=== PATIENT | male | born 1960 | race Caucasian/White ===

== ENCOUNTER 2016-08-02 14:32 | Emergency (ER) | payer SELFPAY ==
[~2016-08-02] VITALS: Wt 76.0 kg
[~2016-08-02 14:32] MED LIST: CARB1TAB PO; LISI10TA2 PO; MAGN400T28 PO; OMEP40CA6 PO; RASA1TAB PO; ROPI2TAB3 PO
== END 2016-08-02 20:52 | disposition left against medical advice (07) ==
LOC: FTE 14:32 → E/R 20:52
DX: Z53.21 Procedure and treatment not carried out due to patient leaving prior to being seen by health care provider (principal)

== ENCOUNTER 2018-09-17 12:35 | Inpatient (IN) | payer OTHER ==
[~2018-09-17] VITALS: Ht 170.2 cm; Wt 87.0 kg
[2018-09-17] MEDS: SOD CHLORIDE 0.9% 1,000 ML IV SCH (14:54)
[2018-09-17] MEDS ORDERED: ONDANSETRON 4 MG INJ IV PRN (15:00)
[2018-09-17] MEDS ORDERED: HYDROmorphONE 0.5 MG/0.5 ML SYG IV PRN (15:00)
[2018-09-17] MEDS ORDERED: PIPER-TAZO 3.375 GM IV (PMX) 100 ML IVPB SCH (15:00)
[2018-09-17] MEDS ORDERED: HYDROCODONE/APAP (5/325) TAB PO PRN (15:00)
[2018-09-17] MEDS ORDERED: NACL 0.9% 3 ML SYG IV SCH (15:00)
[2018-09-17] MEDS ORDERED: ACETAMINOPHEN 325 MG TAB PO PRN (15:00)
--- NOTE | 2018-09-17 15:03 | HP ---
Date/Time of Note Date/Time of Note DATE: 09/17/18 TIME: 15:03 Assessment/Plan VTE Prophylaxis Pharmacological prophylaxis: other Assessment/Plan Hospital Course Patient is a male with a past medical history significant for Parkinson's with chronic tremors who presents to [facility] as a transfer from outside facility for cholecystitis. Patient states that for the past 2 days he has had right upper quadrant pain that has been getting progressively worse. Patient finally decided to go to the ED early last night due to pain that was not relieved by any positioning. CT and ultrasound was done at outside facility and is in the chart now that shows evidence of likely cholecystitis. Patient currently states that he is in fairly severe pain but otherwise other than his right upper quadrant pain has no acute issues. Patient states that he also had some decreased urine output but denies any urinary pain. Patient denies chest pain, shortness of breath, headache, dizziness, leg pain. Patient ambulates well normally and has no other issues. Objective Physical exam General: Patient is laying in bed and answers questions appropriately, bilateral upper extremity tremor Mentation: Patient is alert and oriented 4, Head: Normocephalic atraumatic Eyes: EOMI, pupils reactive to light Neck: Supple, nontender, midline Respiratory: Clear to auscultation bilaterally Cardiovascular: regular rate, no obvious murmurs Gastrointestinal: Right upper quadrant tender to palpation, bowel sounds heard. Neurological: Moves all extremities spontaneously Skin: No new skin lesions Assessment and plan Cholecystitis -CT and ultrasound at outside facility demonstrate evidence of cholecystitis -Liver labs at outside facility show negative lipase, normal AST and ALT and normal bilirubin however will repeat, -General surgery, Dr. Guerrier consulted -Per general surgery request, cardiology consulted, Dr. Hardin. Sepsis -IV fluid, IV antibiotic, blood cultures -Secondary to above -White count was 18 at the outside facility Abnormal gastric lining irregularity -Seen on CT at outside facility -Seen by Dr. Barnes approximately 2 years ago for colonoscopy, will reconsult Dr. Barnes for possible malignancy versus gastric ulcer work-up -Asymptomatic per patient, however will need work-up. -We will need to address cholecystitis first Parkinson's disease -We will hold off on Parkinson's medication for now as patient is n.p.o. -Patient has chronic bilateral upper extremity tremors due to Parkinson's Hypertension -Patient has hypertension due to his Parkinson's, hold off on p.o. medications due to n.p.o. status Questionable tachycardia -Initially nursing stated patient's heart rate was in the 200s, very unlikely, likely change due to patient's chronic tremors, physical exam showed a very steady and non-tachycardic rate -EKG pending -Cardiology consulted Disposition -Repeat stat labs, cardiology consultation pending for cardiac clearance, general surgeon and GI consultation also pending. HPI/ROS Admit Date/Time Admit Date/Time Sep 17, 2018 at 14:05 PMH/Family/Social Past Medical History Medications Current Medications Sodium Chloride 1,000 ml @ 100 mls/hr Q10H IV Last administered on 09/17/18at 14:54; Admin Dose 75 MLS/HR; Start 09/17/18 at 14:31 IV Flush (NS 3 ml) 3 ml PER PROTOCOL IV ; Start 09/17/18 at 15:00 Ondansetron HCl (Zofran Inj) 4 mg Q6H PRN IV NAUSEA/VOMITING; Start 09/17/18 at 15:00 Acetaminophen (Tylenol Tab) 650 mg Q6H PRN PO .PAIN 1-3 OR TEMP; Start 09/17/18 at 15:00 Acetaminophen/ Hydrocodone Bitart ([place] (5/325)) 1 tab Q6H PRN PO .PAIN 4-6; Start 09/17/18 at 15:00 Hydromorphone HCl (Dilaudid) 0.5 mg Q4H PRN IV .PAIN 7-10 Last administered on 09/17/18at 14:51; Admin Dose 0.5 MG; Start 09/17/18 at 15:00 Pantoprazole (Protonix Iv) 40 mg DAILY@06 IV ; Start 09/18/18 at 06:00 Piperacillin Sod/ Tazobactam Sod 100 ml @ 200 mls/hr Q6 IVPB ; Start 09/17/18 at 15:00 Coded Allergies: No Known Allergies (Verified Allergy, Mild, 04/17/10) ISIDRA SHARMA Sep 17, 2018 15:03
[2018-09-17 15:05] VITALS: Ht 170.2 cm; Wt 87.0 kg
[2018-09-17] MEDS ORDERED: hydrALAzine 20 MG INJ IV PRN (15:30)
[2018-09-17] MEDS: PIPER-TAZO 3.375 GM IV (PMX) 100 ML IVPB SCH ×3 (17:17→23:20)
--- NOTE | 2018-09-17 17:23 | CONS ---
Assessment/Plan Assessment/Plan Assessment/Plan (Daily) Cholecystitis -CT and ultrasound at outside facility showed evidence of cholecystitis -Liver labs at outside facility - negative lipase, normal AST and ALT and normal bilirubin however will repeat, -General surgery, Dr. Guerrier consulted -Per general surgery request, cardiology consulted, Dr. Hardin. Abnormal gastric lining irregularity - Plan for EGD -Abnormal gastric lining irregularity- Seen on CT at outside facility -Sp colonoscopy x 2 years ago -Asymptomatic per patient -Sepsis -IV fluid, IV antibiotic, blood cultures per ID -- Leukocytosis 2/2 to above -Parkinson's disease - management per PMD -Hypertension - management per PMD -Questionable tachycardia -EKG pending -Cardiology follows - Smoker - Provide smoking cessation Patient seen in collaboration with Dr Barnes. Consultation Date/Type/Reason Admit Date/Time Sep 17, 2018 at 14:05 Type of Consult GI Reason for Consultation CHOLECYSTITIS Date/Time of Note DATE: 09/17/18 TIME: 17:02 Hx of Present Illness Patient is a 58 years old male with a past medical history significant for Parkinson's with chronic tremors is admitted to [facility] for cholecystitis. He was transfer from a outside facility. Patient c/o right upper quadrant pain x 2 days and is progressively getting worse. CT and ultrasound was done at outside facility and is in the chart resulted in evidence of likely cholecystitis. Patient currently states that he is in fairly severe pain but otherwise other than his right upper quadrant pain has no acute issues. Patient states that he also had some decreased urine output but denies any urinary pain. Patient denies chest pain, shortness of breath, headache, dizziness,palpitations, bloody stool, bilious vomitting, right or left leg or calf pain. Patient was admitted under Dr Fernández at [facility]. GI is consulted for abdominal pain/cholecystitis and abnormal Gastric limning. ROS All systems reviewed and are negative except as per history of present illness. Constitutional: requiring IVF Eyes: no complaints ENT: no complaints Respiratory: no complaints Cardiovascular: no complaints Gastrointestinal: pain Genitourinary: no complaints Musculoskeletal: no complaints Skin: no complaints Neurologic: other (tremors) Endocrine: no complaints Lymphatic: no complaints Psychological: no complaints Past Medical History Medical History: hypertension Home Meds Reported Medications Carbidopa/Levodopa (Carbidopa-Levo 25-100 Tab) 1 Udtab.sa Tablet.sa, 1 TAB PO QID, #120 TAB 12/26/15 Rasagiline Mesylate* (Azilect*) 1 Mg Tablet, 1 MG PO DAILY, TAB 12/26/15 Lisinopril* (Lisinopril*) 10 Mg Tablet, 10 MG PO DAILY, #30 TAB 12/26/15 Ropinirole Hcl* (Ropinirole Hcl*) 2 Mg Tablet, 2 MG PO TID, TAB 12/26/15 Omeprazole* (Omeprazole*) 40 Mg Capsule.dr, 40 MG PO DAILY, #30 CAP 12/26/15 Magnesium Oxide* (Magnesium Oxide*) 400 Mg Tablet, 400 MG PO DAILY, TAB 12/26/15 Medications Current Medications Sodium Chloride 1,000 ml @ 100 mls/hr Q10H IV Last administered on 09/17/18at 14:54; Admin Dose 75 MLS/HR; Start 09/17/18 at 14:31 IV Flush (NS 3 ml) 3 ml PER PROTOCOL IV ; Start 09/17/18 at 15:00 Ondansetron HCl (Zofran Inj) 4 mg Q6H PRN IV NAUSEA/VOMITING; Start 09/17/18 at 15:00 Acetaminophen (Tylenol Tab) 650 mg Q6H PRN PO .PAIN 1-3 OR TEMP; Start 09/17/18 at 15:00 Acetaminophen/ Hydrocodone Bitart ([place] (5/325)) 1 tab Q6H PRN PO .PAIN 4-6; Start 09/17/18 at 15:00 Hydromorphone HCl (Dilaudid) 0.5 mg Q4H PRN IV .PAIN 7-10 Last administered on 09/17/18at 14:51; Admin Dose 0.5 MG; Start 09/17/18 at 15:00 Pantoprazole (Protonix Iv) 40 mg DAILY@06 IV ; Start 09/18/18 at 06:00 Piperacillin Sod/ Tazobactam Sod 100 ml @ 200 mls/hr Q6 IVPB ; Start 09/17/18 at 15:00 Hydralazine HCl (Apresoline) 10 mg Q4H PRN IV sbp >160; Start 09/17/18 at 15:30 Allergies: Coded Allergies: No Known Allergies (Verified Allergy, Mild, 04/17/10) Past Surgical History Past Surgical Hx: noncontributory Family History Significant Family History: no pertinent family hx Social History Alcohol Use: occasionally Smoking Status: Light tobacco smoker Drug Use: none Exam/Review of Systems Exam Constitutional: alert, well developed Psych: no complaints Eyes: nl lids, nl sclera ENMT: nl external ears & nose Neck: non-tender Respiratory: clear to auscultation, other (bilaterally) Cardiovascular: nl pulses, other (s1s2) Gastrointestinal: soft, tender (diffuse tenderness noted) Musculoskeletal: nl extremities to inspection Extremities: normal pulses Neurological: nl speech, other (Parkinsons tremors) Skin: nl turgor Lymph: nontender Results Result Diagram: 09/17/18 1526 09/17/18 1526 Results 24hrs Laboratory Tests Test 09/17/18 15:26 White Blood Count 17.0 H Red Blood Count 4.73 Hemoglobin 14.7 Hematocrit 43.0 Mean Corpuscular Volume 90.9 Mean Corpuscular Hemoglobin 31.1 Mean Corpuscular Hemoglobin Concent 34.2 Red Cell Distribution Width 12.8 Platelet Count 297 Mean Platelet Volume 10.8 H Immature Granulocytes % 0.400 Neutrophils % 83.8 H Lymphocytes % 6.9 L Monocytes % 8.4 Eosinophils % 0.2 Basophils % 0.3 Nucleated Red Blood Cells % 0.0 Immature Granulocytes # 0.060 H Neutrophils # 14.2 H Lymphocytes # 1.2 Monocytes # 1.4 H Eosinophils # 0.0 Basophils # 0.1 Nucleated Red Blood Cells # 0.0 Prothrombin Time 14.4 Prothrombin Time Ratio 1.1 INR International Normalized Ratio 1.11 Activated Partial Thromboplast Time 29.2 Sodium Level 138 Potassium Level 3.9 Chloride Level 104 Carbon Dioxide Level 25 Anion Gap 9 Blood Urea Nitrogen 12 Creatinine 0.66 Est Glomerular Filtrat Rate mL/min > 60 Glucose Level 104 Lactic Acid Level 0.9 Calcium Level 9.0 Magnesium Level 1.7 Total Bilirubin 1.4 H Direct Bilirubin 0.00 Indirect Bilirubin 1.4 H Aspartate Amino Transf (AST/SGOT) 35 Alanine Aminotransferase (ALT/SGPT) 27 Alkaline Phosphatase 61 Troponin I < 0.012 Total Protein 7.1 Albumin 4.0 Globulin 3.10 Albumin/Globulin Ratio 1.29 Medications Medication Current Medications Sodium Chloride 1,000 ml @ 100 mls/hr Q10H IV Last administered on 09/17/18at 14:54; Admin Dose 75 MLS/HR; Start 09/17/18 at 14:31 IV Flush (NS 3 ml) 3 ml PER PROTOCOL IV ; Start 09/17/18 at 15:00 Ondansetron HCl (Zofran Inj) 4 mg Q6H PRN IV NAUSEA/VOMITING; Start 09/17/18 at 15:00 Acetaminophen (Tylenol Tab) 650 mg Q6H PRN PO .PAIN 1-3 OR TEMP; Start 09/17/18 at 15:00 Acetaminophen/ Hydrocodone Bitart ([place] (5/325)) 1 tab Q6H PRN PO .PAIN 4-6; Start 09/17/18 at 15:00 Hydromorphone HCl (Dilaudid) 0.5 mg Q4H PRN IV .PAIN 7-10 Last administered on 09/17/18at 14:51; Admin Dose 0.5 MG; Start 09/17/18 at 15:00 Pantoprazole (Protonix Iv) 40 mg DAILY@06 IV ; Start 09/18/18 at 06:00 Piperacillin Sod/ Tazobactam Sod 100 ml @ 200 mls/hr Q6 IVPB ; Start 09/17/18 at 15:00 Hydralazine HCl (Apresoline) 10 mg Q4H PRN IV sbp >160; Start 09/17/18 at 15:30 MOUSTAPHA HULL Sep 17, 2018 17:13
--- NOTE | 2018-09-17 17:24 | CONS ---
Assessment/Plan Assessment/Plan Assessment/Plan (Daily) Acute cholecystitis Patient has been started on IV antibiotics. GI consultation and cardiology cons ultation for this patient have been sought. Laparoscopic cholecystectomy is recommended for this patient when medically cleared. Consultation Date/Type/Reason Admit Date/Time Sep 17, 2018 at 14:05 Date of Consultation: Sep 17, 2018 Type of Consult General surgery Reason for Consultation Acute cholecystitis Date/Time of Note DATE: 09/17/18 TIME: 17:19 Hx of Present Illness The patient is a 58-year-old male with Parkinson's disease who presented to [facility] with severe midepigastric and right upper quadrant abdominal pain. He was found on abdominal ultrasound and CT to have a thickened gallbladder with gallstones and findings compatible with acute cholecystitis. He was also noted to have an elevated white blood cell count although his LFTs w ere normal he was transferred here for continuance of care. Review of systems: Head ears eyes nose and throat: Unremarkable Pulmonary: no history of asthma, pneumonia or shortness of breath Cardiac: Unknown Abdomen: As in the HPI Extremities: Intention tremor from Parkinson's disease Past Medical History Medical History: other (Perkinson's disease) Home Meds Reported Medications Carbidopa/Levodopa (Carbidopa-Levo 25-100 Tab) 1 Udtab.sa Tablet.sa, 1 TAB PO QID, #120 TAB 12/26/15 Rasagiline Mesylate* (Azilect*) 1 Mg Tablet, 1 MG PO DAILY, TAB 12/26/15 Lisinopril* (Lisinopril*) 10 Mg Tablet, 10 MG PO DAILY, #30 TAB 12/26/15 Ropinirole Hcl* (Ropinirole Hcl*) 2 Mg Tablet, 2 MG PO TID, TAB 12/26/15 Omeprazole* (Omeprazole*) 40 Mg Capsule.dr, 40 MG PO DAILY, #30 CAP 12/26/15 Magnesium Oxide* (Magnesium Oxide*) 400 Mg Tablet, 400 MG PO DAILY, TAB 12/26/15 Medications Current Medications Sodium Chloride 1,000 ml @ 100 mls/hr Q10H IV Last administered on 09/17/18at 14:54; Admin Dose 75 MLS/HR; Start 09/17/18 at 14:31 IV Flush (NS 3 ml) 3 ml PER PROTOCOL IV ; Start 09/17/18 at 15:00 Ondansetron HCl (Zofran Inj) 4 mg Q6H PRN IV NAUSEA/VOMITING; Start 09/17/18 at 15:00 Acetaminophen (Tylenol Tab) 650 mg Q6H PRN PO .PAIN 1-3 OR TEMP; Start 09/17/18 at 15:00 Acetaminophen/ Hydrocodone Bitart ([place] (5/325)) 1 tab Q6H PRN PO .PAIN 4-6; Start 09/17/18 at 15:00 Hydromorphone HCl (Dilaudid) 0.5 mg Q4H PRN IV .PAIN 7-10 Last administered on 09/17/18at 14:51; Admin Dose 0.5 MG; Start 09/17/18 at 15:00 Pantoprazole (Protonix Iv) 40 mg DAILY@06 IV ; Start 09/18/18 at 06:00 Piperacillin Sod/ Tazobactam Sod 100 ml @ 200 mls/hr Q6 IVPB Last administered on 09/17/18at 17:17; Admin Dose 200 MLS/HR; Start 09/17/18 at 15:00 Hydralazine HCl (Apresoline) 10 mg Q4H PRN IV sbp >160; Start 09/17/18 at 15:30 Allergies: Coded Allergies: No Known Allergies (Verified Allergy, Mild, 04/17/10) Past Surgical History Past Surgical Hx: no surgical history Family History Significant Family History: no pertinent family hx Social History Alcohol Use: none Smoking Status: Light tobacco smoker Exam/Review of Systems Exam Constitutional: alert, oriented Psych: no complaints Head: normocephalic Respiratory: clear to auscultation, crackles/rales Gastrointestinal: tender (Tender right upper quadrant, slight Robles sign) Musculoskeletal: nl extremities to inspection, other (Tension tremor both upper and lower extremities) Extremities: normal pulses Results Result Diagram: 09/17/18 1526 09/17/18 1526 Results 24hrs Laboratory Tests Test 09/17/18 15:26 White Blood Count 17.0 H Red Blood Count 4.73 Hemoglobin 14.7 Hematocrit 43.0 Mean Corpuscular Volume 90.9 Mean Corpuscular Hemoglobin 31.1 Mean Corpuscular Hemoglobin Concent 34.2 Red Cell Distribution Width 12.8 Platelet Count 297 Mean Platelet Volume 10.8 H Immature Granulocytes % 0.400 Neutrophils % 83.8 H Lymphocytes % 6.9 L Monocytes % 8.4 Eosinophils % 0.2 Basophils % 0.3 Nucleated Red Blood Cells % 0.0 Immature Granulocytes # 0.060 H Neutrophils # 14.2 H Lymphocytes # 1.2 Monocytes # 1.4 H Eosinophils # 0.0 Basophils # 0.1 Nucleated Red Blood Cells # 0.0 Prothrombin Time 14.4 Prothrombin Time Ratio 1.1 INR International Normalized Ratio 1.11 Activated Partial Thromboplast Time 29.2 Sodium Level 138 Potassium Level 3.9 Chloride Level 104 Carbon Dioxide Level 25 Anion Gap 9 Blood Urea Nitrogen 12 Creatinine 0.66 Est Glomerular Filtrat Rate mL/min > 60 Glucose Level 104 Lactic Acid Level 0.9 Calcium Level 9.0 Magnesium Level 1.7 Total Bilirubin 1.4 H Direct Bilirubin 0.00 Indirect Bilirubin 1.4 H Aspartate Amino Transf (AST/SGOT) 35 Alanine Aminotransferase (ALT/SGPT) 27 Alkaline Phosphatase 61 Troponin I < 0.012 Total Protein 7.1 Albumin 4.0 Globulin 3.10 Albumin/Globulin Ratio 1.29 Medications Medication Current Medications Sodium Chloride 1,000 ml @ 100 mls/hr Q10H IV Last administered on 09/17/18at 14:54; Admin Dose 75 MLS/HR; Start 09/17/18 at 14:31 IV Flush (NS 3 ml) 3 ml PER PROTOCOL IV ; Start 09/17/18 at 15:00 Ondansetron HCl (Zofran Inj) 4 mg Q6H PRN IV NAUSEA/VOMITING; Start 09/17/18 at 15:00 Acetaminophen (Tylenol Tab) 650 mg Q6H PRN PO .PAIN 1-3 OR TEMP; Start 09/17/18 at 15:00 Acetaminophen/ Hydrocodone Bitart ([place] (5/325)) 1 tab Q6H PRN PO .PAIN 4-6; Start 09/17/18 at 15:00 Hydromorphone HCl (Dilaudid) 0.5 mg Q4H PRN IV .PAIN 7-10 Last administered on 09/17/18at 14:51; Admin Dose 0.5 MG; Start 09/17/18 at 15:00 Pantoprazole (Protonix Iv) 40 mg DAILY@06 IV ; Start 09/18/18 at 06:00 Piperacillin Sod/ Tazobactam Sod 100 ml @ 200 mls/hr Q6 IVPB Last administered on 09/17/18at 17:17; Admin Dose 200 MLS/HR; Start 09/17/18 at 15:00 Hydralazine HCl (Apresoline) 10 mg Q4H PRN IV sbp >160; Start 09/17/18 at 15:30 AMAN DAWN MD Sep 17, 2018 17:24
[2018-09-17 19:39] VITALS: BP 128/47; PULSE 91; RESP 16
[2018-09-17] MEDS: HYDROmorphONE 0.5 MG/0.5 ML SYG IV PRN (19:41)
[2018-09-18] VITALS (13 sets, daily range): BP systolic 113–140; BP diastolic 61–83; PULSE 82–97; RESP 16–23
[2018-09-18] MEDS: HYDROmorphONE 0.5 MG/0.5 ML SYG IV PRN ×2 (00:08→18:55)
[2018-09-18] MEDS: SOD CHLORIDE 0.9% 1,000 ML IV SCH ×3 (00:38→23:30)
--- NOTE | 2018-09-18 01:05 | RADRPT ---
Vent Rate: 91 bpm RR Interval: 660 msec IN Interval: 164 msec QRS Duration: 98 msec QT Interval: 348 msec QTC Interval: 428 msec P-R-T Raymond: 22 - -26 - 35 degrees Sinus rhythm...normal P axis, V-rate 50- 99 Probable left atrial enlargement...P >50mS, <-0.10mV V1 Borderline ST elevation, anterior leads...ST >0.15mV in V1-V4 Electronically Signed By: Tim Moore
[2018-09-18] MEDS: PANTOPRAZOLE 40 MG INJ IV SCH (05:14)
[2018-09-18] MEDS: PIPER-TAZO 3.375 GM IV (PMX) 100 ML IVPB SCH ×4 (05:14→23:31)
--- NOTE | 2018-09-18 09:53 | CONS ---
DATE OF ADMISSION: 09/17/2018 DATE OF CONSULTATION: 09/18/2018 HISTORY OF PRESENT ILLNESS: The patient is admitted to the hospital because of abdominal pain and vo miting. He was seen in the [facility] where CAT scan of the abdomen shows irregulari ty of the stomach with thickening and asymmetry, infection in the antrum. Also showed evidence of po ssible cholecystitis. REVIEW OF SYSTEM: Positive for Parkinsonism. PAST MEDICAL HISTORY: Essentially as mentioned above, the patient had a previous colonoscopy done, w hich showed findings were unremarkable. Please refer to the past medical history and physical. MEDICATIONS: Include: 1. Pantoprazole 2. Hydralazine. 3. Zofran. 4. [place]. 5. Dilaudid. 6. Antibiotics Piperacillin. 7. Tazobactam. PHYSICAL EXAMINATION: GENERAL: The patient is a 58-year-old gentleman at the time is alert, well built, is afebri le, has Parkinsonism. VITAL SIGNS: Temperature 98.7, pulse is 92, blood pressure is 140/78. CARDIOVASCULAR: Normal heart sounds. RESPIRATORY: Normal breath sounds. ABDOMEN: Unremarkable. LABORATORY WORKUP: Potassium 3.9, bilirubin is 1.6, AST 29, ALT 27, alkaline phosphatase 59, hemoglo bin 13.8, WBC count 17,400. CLINICAL IMPRESSION: 1. Possible acute cholecystitis. 2. He has evidence of abnormal stomach which is asymmetrical thickening of the antrum. Rule out pep tic ulcer disease, rule out malignancy. 3. Parkinsonism. PLAN: At this time, recommend upper endoscopy, discussed with the patient. Patient agreed. Dictated By: ELENA CALHOUN MD NC/NTS Conf#: [id number] DID#: [id number] CC: ISIDRA SHARMA MD;*EndCC*
--- NOTE | 2018-09-18 11:42 | RADRPT ---
Echocardiogram Report Patient Name: Jazmine AGUILAR ID: [id number] : 1960 (58y 3m)Study Date: 09/18/2018 8:07:54 AM Gender: MAccession #: [id number] Tech: Hayde Lewis [facility] Location: [id number] Ref.Physician: ISIDRA SHARMA Height(Cm): BSA: Weight(Kg): Quality: AdequateAccount #: Procedures: Echocardiographic Report: Transthoracic echocardiogram with complete 2D, M-Mode, and doppler examination. Indications: Pre-op. Measurements: 2D/M Mode Doppler Measurement Value Normal Range Measurement Value Normal Range LVIDd 2D 3.5 [ 4.2 - 5.8 ] cm AV Peak Rodriguez 1.9 [ 100.0 - 170.0 ] cm/sec LVIDs 2D 1.9 [ 2.5 - 4.0 ] cm AV Peak PG 14.0 [ 2.0 - 9.0 ] mmHg LVPWd 2D 0.9 [ 0.6 - 1.0 ] cm LVOT Peak Rodriguez 1.3 [ 70.0 - 110.0 ] cm/sec IVSd 2D 0.9 [ 0.6 - 1.0 ] cm LVOT Peak PG 7.0 [ 2.0 - 6.0 ] mmHg AoR Diam 2D 2.9 [ 2.6 - 3.4 ] cm MV E Peak Rodriguez 0.7 [ 60.0 - 130.0 ] cm/sec EDV 2D 50.2 [ 62.0 - 150.0 ] ml MV A Peak Rodriguez 0.9 [ 100.0 - 120.0 ] cm/sec ESV 2D 10.4 [ 21.0 - 61.0 ] ml MV E/A 0.8 [ 0.8 - 1.5 ] ratio EF 2D 79.3 [ 52.0 - 72.0 ] percent MV Decel Time 151 [ 104 - 258 ] msec LA Dimen 2D 3.0 [ 3.0 - 4.0 ] cm Lat E` Rodriguez 0.1 [ 10.0 - 15.0 ] cm/sec Lateral E/E` 6.7 [ 1.0 - 2.0 ] ratio MV E/A 0.8 [ 0.8 - 1.5 ] ratio Findings: Left Ventricle: Normal left ventricular systolic function. Normal left ventricular cavity size. Normal left ventricular wall thickness. Ejection fraction is visually estimated at 65 %. Tissue Doppler/Mitral Doppler indices are consistent with impaired relaxation (Stage I diastolic dysfunction). Right Ventricle: Normal right ventricular size. Normal right ventricular systolic function. Left Atrium: There is mild enlargement of left atrium. Right Atrium: The right atrium is normal in size. Mitral Valve: Normal appearance and function of the mitral valve with trace physiologic regurgitation. Aortic Valve: Normal appearance of the aortic valve. No significant aortic stenosis or insufficiency. Tricuspid Valve: Normal appearance of the tricuspid valve. Unable to obtain RVSP due to minimal presence of tricuspid regurgitation. Pulmonic Valve: Normal pulmonic valve appearance. Pericardium: Normal pericardium with no significant pericardial effusion. Aorta: Normal aortic root. IVC: Normal size and normal respiratory collapse consistent with normal right atrial pressure. Conclusions: Normal left ventricular systolic function. Normal left ventricular cavity size. Normal left ventricular wall thickness. Ejection fraction is visually estimated at 65 %. Tissue Doppler/Mitral Doppler indices are consistent with impaired relaxation (Stage I diastolic dysfunction). No significant valvular stenosis or regurgitation seen. Unable to obtain RVSP due to minimal presence of tricuspid regurgitation. Normal size and normal respiratory collapse consistent with normal right atrial pressure. Electronically Signed By: Marciano Hardin 2018-09-18 11:41:22 PDT
--- NOTE | 2018-09-18 11:54 | PN ---
Date/Time of Note Date/Time of Note DATE: 09/18/18 TIME: 11:54 Assessment/Plan VTE Prophylaxis Risk score (from Ns)>0 risk: 2 SCD applied (from Ns): Yes Pharmacological prophylaxis: NA/contraindicated Pharm contraindication: low risk/ambulating Lines/Catheters IV C[facility]ter Type (from [facility] Peripheral IV Urinary Cath still in place: No Assessment/Plan Hospital Course SUBJECTIVE: Sitting up in bed, having pain on right upper abdominal area. No chest pain, shortness of breath, palpitation, diaphoresis or other discomfort. OBJECTIVE: Vital signs-see below PHYSICAL EXAM: Constitutional: Adequately built,not in acute distress. HEENT: Head atraumatic and normocephalic. Eyes: Extraocular muscles intact. Anicteric sclerae. Pupils equal bilaterally, reactive to light. NECK: Supple without lymph node. CHEST: Clear and good breath sounds equally. No wheezing. No rhonchi. HEART: S1, S2. Regular rate and rhythm. ABDOMEN: +Tenderness RUQ, no rebound tenderness Bowel sounds were present. EXTREMITIES: No cyanosis, clubbing or edema. NEUROLOGIC: Alert and oriented x3. No focal deficit. No sensory deficit. PSYCHOSOCIAL: No signs of depression. INTEGUMENTARY: No open wounds. ASSESSMENT AND PLAN: 58-year-old male with a history of parkinsonism, hypertension, GERD, admitted with acute cholecystitis. Acute cholecystitis. -Plan for laparoscopic versus open Cholecystectomy. Continue pain control, antimicrobials. -Postoperative management per surgery. Abnormal antral wall thickening, rule out peptic ulcer disease -Appreciate GI recommendation and plan is upper endoscopy, timing/scheduling per GI team -Empiric PPI Abnormal EKG -We will follow-up cardiology recommendations preoperatively. -Currently patient in sinus rhythm with stable heart rate. No chest pain symptoms. Parkinsonism -Resume home medications Essential hypertension -We will resume antihypertensives DVT prophylaxis: SCDs PUD prophylaxis: Protonix Disposition: Continue current management. Follow-up surgery recommendations postoperatively. Follow-up GI recommendations. Patient is seen in collaboration with Dr. Livingston. Result Diagram: 09/18/18 0451 09/18/18 0451 Results 24hrs Laboratory Tests Test 09/17/18 15:26 09/17/18 17:07 09/18/18 04:51 White Blood Count 17.0 H 17.4 H Red Blood Count 4.73 4.39 L Hemoglobin 14.7 13.8 L Hematocrit 43.0 41.2 L Mean Corpuscular Volume 90.9 93.8 Mean Corpuscular Hemoglobin 31.1 31.4 Mean Corpuscular Hemoglobin Concent 34.2 33.5 Red Cell Distribution Width 12.8 13.1 Platelet Count 297 268 Mean Platelet Volume 10.8 H 10.7 H Immature Granulocytes % 0.400 0.500 H Neutrophils % 83.8 H 82.1 H Lymphocytes % 6.9 L 7.7 L Monocytes % 8.4 8.8 Eosinophils % 0.2 0.6 Basophils % 0.3 0.3 Nucleated Red Blood Cells % 0.0 0.0 Immature Granulocytes # 0.060 H 0.080 H Neutrophils # 14.2 H 14.3 H Lymphocytes # 1.2 1.4 Monocytes # 1.4 H 1.5 H Eosinophils # 0.0 0.1 Basophils # 0.1 0.1 Nucleated Red Blood Cells # 0.0 0.0 Prothrombin Time 14.4 Prothrombin Time Ratio 1.1 INR International Normalized Ratio 1.11 Activated Partial Thromboplast Time 29.2 Sodium Level 138 140 Potassium Level 3.9 3.9 Chloride Level 104 103 Carbon Dioxide Level 25 29 Anion Gap 9 8 Blood Urea Nitrogen 12 13 Creatinine 0.66 0.89 Est Glomerular Filtrat Rate mL/min > 60 > 60 Glucose Level 104 95 Lactic Acid Level 0.9 Calcium Level 9.0 8.9 Magnesium Level 1.7 1.9 Total Bilirubin 1.4 H 1.6 H Direct Bilirubin 0.00 0.00 Indirect Bilirubin 1.4 H 1.6 H Aspartate Amino Transf (AST/SGOT) 35 29 Alanine Aminotransferase (ALT/SGPT) 27 27 Alkaline Phosphatase 61 59 Troponin I < 0.012 Total Protein 7.1 6.8 Albumin 4.0 3.8 Globulin 3.10 3.00 Albumin/Globulin Ratio 1.29 1.26 Urine Color YELLOW Urine Clarity CLEAR Urine pH 6.0 Urine Specific [employer] 1.011 Urine Ketones NEGATIVE Urine Nitrite NEGATIVE Urine Bilirubin NEGATIVE Urine Urobilinogen NEGATIVE Urine Leukocyte Esterase NEGATIVE Urine Microscopic RBC 1 Urine Microscopic WBC 0 Urine Hemoglobin 1+ H Urine Glucose NEGATIVE Urine Total Protein NEGATIVE Triglycerides Level 45 Cholesterol Level 94 L LDL Cholesterol, Calculated 36 HDL Cholesterol 49 Cholesterol/HDL Ratio 1.9 Thyroid Stimulating Hormone (TSH) 3.460 Exam/Review of Systems Exam Vitals Vital Signs Date Temp Pulse Resp B/P (MAP) Pulse Ox O2 O2 Flow FiO2 Time Delivery Rate 09/18/18 98.7 92 18 140/78 94 08:00 (98) 09/18/18 Room Air 02:36 Intake and Output 09/17/18 09/17/18 09/18/18 1515:00 23:00 07:00 IntakeIntake Total 400 ml 1100 ml OutputOutput Total 400 ml BalanceBalance 0 ml 1100 ml Results Results 24hrs Laboratory Tests Test 09/17/18 15:26 09/17/18 17:07 09/18/18 04:51 White Blood Count 17.0 H 17.4 H Red Blood Count 4.73 4.39 L Hemoglobin 14.7 13.8 L Hematocrit 43.0 41.2 L Mean Corpuscular Volume 90.9 93.8 Mean Corpuscular Hemoglobin 31.1 31.4 Mean Corpuscular Hemoglobin Concent 34.2 33.5 Red Cell Distribution Width 12.8 13.1 Platelet Count 297 268 Mean Platelet Volume 10.8 H 10.7 H Immature Granulocytes % 0.400 0.500 H Neutrophils % 83.8 H 82.1 H Lymphocytes % 6.9 L 7.7 L Monocytes % 8.4 8.8 Eosinophils % 0.2 0.6 Basophils % 0.3 0.3 Nucleated Red Blood Cells % 0.0 0.0 Immature Granulocytes # 0.060 H 0.080 H Neutrophils # 14.2 H 14.3 H Lymphocytes # 1.2 1.4 Monocytes # 1.4 H 1.5 H Eosinophils # 0.0 0.1 Basophils # 0.1 0.1 Nucleated Red Blood Cells # 0.0 0.0 Prothrombin Time 14.4 Prothrombin Time Ratio 1.1 INR International Normalized Ratio 1.11 Activated Partial Thromboplast Time 29.2 Sodium Level 138 140 Potassium Level 3.9 3.9 Chloride Level 104 103 Carbon Dioxide Level 25 29 Anion Gap 9 8 Blood Urea Nitrogen 12 13 Creatinine 0.66 0.89 Est Glomerular Filtrat Rate mL/min > 60 > 60 Glucose Level 104 95 Lactic Acid Level 0.9 Calcium Level 9.0 8.9 Magnesium Level 1.7 1.9 Total Bilirubin 1.4 H 1.6 H Direct Bilirubin 0.00 0.00 Indirect Bilirubin 1.4 H 1.6 H Aspartate Amino Transf (AST/SGOT) 35 29 Alanine Aminotransferase (ALT/SGPT) 27 27 Alkaline Phosphatase 61 59 Troponin I < 0.012 Total Protein 7.1 6.8 Albumin 4.0 3.8 Globulin 3.10 3.00 Albumin/Globulin Ratio 1.29 1.26 Urine Color YELLOW Urine Clarity CLEAR Urine pH 6.0 Urine Specific [employer] 1.011 Urine Ketones NEGATIVE Urine Nitrite NEGATIVE Urine Bilirubin NEGATIVE Urine Urobilinogen NEGATIVE Urine Leukocyte Esterase NEGATIVE Urine Microscopic RBC 1 Urine Microscopic WBC 0 Urine Hemoglobin 1+ H Urine Glucose NEGATIVE Urine Total Protein NEGATIVE Triglycerides Level 45 Cholesterol Level 94 L LDL Cholesterol, Calculated 36 HDL Cholesterol 49 Cholesterol/HDL Ratio 1.9 Thyroid Stimulating Hormone (TSH) 3.460 Medications Medication Current Medications Sodium Chloride 1,000 ml @ 100 mls/hr Q10H IV Last administered on 09/18/18at 03:35; Admin Dose 100 MLS/HR; Start 09/17/18 at 14:31 IV Flush (NS 3 ml) 3 ml PER PROTOCOL IV ; Start 09/17/18 at 15:00 Ondansetron HCl (Zofran Inj) 4 mg Q6H PRN IV NAUSEA/VOMITING; Start 09/17/18 at 15:00 Acetaminophen (Tylenol Tab) 650 mg Q6H PRN PO .PAIN 1-3 OR TEMP; Start 09/17/18 at 15:00 Acetaminophen/ Hydrocodone Bitart ([place] (5/325)) 1 tab Q6H PRN PO .PAIN 4-6; Start 09/17/18 at 15:00 Pantoprazole (Protonix Iv) 40 mg DAILY@06 IV Last administered on 09/18/18at 05:14; Admin Dose 40 MG; Start 09/18/18 at 06:00 Piperacillin Sod/ Tazobactam Sod 100 ml @ 200 mls/hr Q6 IVPB Last administered on 09/18/18at 05:14; Admin Dose 200 MLS/HR; Start 09/17/18 at 15:00 Hydralazine HCl (Apresoline) 10 mg Q4H PRN IV sbp >160; Start 09/17/18 at 15:30 Hydromorphone HCl (Dilaudid) 0.5 mg Q3 PRN IV .PAIN 7-10 Last administered on 09/18/18at 00:08; Admin Dose 0.5 MG; Start 09/17/18 at 18:00 ELANA JEFFERY NP Sep 18, 2018 11:54
--- NOTE | 2018-09-18 12:00 | CONS ---
Assessment/Plan Assessment/Plan Hospital Course (Demo Recall) Pre-operative evaluation: Pt is to undergo intermediate risk surgery (cholecystectomy) and low risk procedure (EGD) . He has no known cardiac disease, his EKG is unremarkable, he has a normal cardiac exam and no exertional symptoms. He is at intermediate risk for both and does not need further workup. HTN "Tachycardia": no reason to suspect it was a true reading and almost certainly was artifactual from his tremors Cholecystitis Antral thickening Parkinsons -ok for both cholecystectomy and EGD -lisinopril -further management per PMD/consultants Consultation Date/Type/Reason Admit Date/Time Sep 17, 2018 at 14:05 Date of Consultation: Sep 18, 2018 Type of Consult Cardiology Reason for Consultation Pre-op clearance Requesting Provider: ISIDRA SHARMA Date/Time of Note DATE: 09/18/18 TIME: 11:51 Hx of Present Illness 58 yo M with a h/o Parkinson's and HTN, who presented to OSH with RUQ pain and was found to have cholecystitis. He is to undergo cholecystectomy today. Also has thickening of his antrum and will need an EGD this admission. He denies any prior cardiac history. No chest pain or SOB. He is able to walk without symptoms though not at a fast pace. He was noted to have a HR of 200 by RN but it is unclear how that was assessed. It is presumably artifactual from his tremor as he never had symptoms and EKG shows a normal HR. per HPI Past Medical History per hPI Home Meds Reported Medications Carbidopa/Levodopa (Carbidopa-Levo 25-100 Tab) 1 Udtab.sa Tablet.sa, 1 TAB PO QID, #120 TAB 12/26/15 Rasagiline Mesylate* (Azilect*) 1 Mg Tablet, 1 MG PO DAILY, TAB 12/26/15 Lisinopril* (Lisinopril*) 10 Mg Tablet, 10 MG PO DAILY, #30 TAB 12/26/15 Ropinirole Hcl* (Ropinirole Hcl*) 2 Mg Tablet, 2 MG PO TID, TAB 12/26/15 Omeprazole* (Omeprazole*) 40 Mg Capsule.dr, 40 MG PO DAILY, #30 CAP 12/26/15 Magnesium Oxide* (Magnesium Oxide*) 400 Mg Tablet, 400 MG PO DAILY, TAB 12/26/15 Medications Current Medications Sodium Chloride 1,000 ml @ 100 mls/hr Q10H IV Last administered on 09/18/18at 03:35; Admin Dose 100 MLS/HR; Start 09/17/18 at 14:31 IV Flush (NS 3 ml) 3 ml PER PROTOCOL IV ; Start 09/17/18 at 15:00 Ondansetron HCl (Zofran Inj) 4 mg Q6H PRN IV NAUSEA/VOMITING; Start 09/17/18 at 15:00 Acetaminophen (Tylenol Tab) 650 mg Q6H PRN PO .PAIN 1-3 OR TEMP; Start 09/17/18 at 15:00 Acetaminophen/ Hydrocodone Bitart ([place] (5/325)) 1 tab Q6H PRN PO .PAIN 4-6; Start 09/17/18 at 15:00 Pantoprazole (Protonix Iv) 40 mg DAILY@06 IV Last administered on 09/18/18at 05:14; Admin Dose 40 MG; Start 09/18/18 at 06:00 Piperacillin Sod/ Tazobactam Sod 100 ml @ 200 mls/hr Q6 IVPB Last administered on 09/18/18at 05:14; Admin Dose 200 MLS/HR; Start 09/17/18 at 15:00 Hydralazine HCl (Apresoline) 10 mg Q4H PRN IV sbp >160; Start 09/17/18 at 15:30 Hydromorphone HCl (Dilaudid) 0.5 mg Q3 PRN IV .PAIN 7-10 Last administered on 09/18/18at 00:08; Admin Dose 0.5 MG; Start 09/17/18 at 18:00 Allergies: Coded Allergies: No Known Allergies (Verified Allergy, Mild, 04/17/10) Past Surgical History Past Surgical Hx: no surgical history Social History Alcohol Use: none Smoking Status: Light tobacco smoker Drug Use: none Exam/Review of Systems Vital Signs Vitals Vital Signs Date Temp Pulse Resp B/P (MAP) Pulse Ox O2 O2 Flow FiO2 Time Delivery Rate 09/18/18 98.7 92 18 140/78 94 08:00 (98) 09/18/18 Room Air 02:36 Intake and Output 09/17/18 09/17/18 09/18/18 1515:00 23:00 07:00 IntakeIntake Total 400 ml 1100 ml OutputOutput Total 400 ml BalanceBalance 0 ml 1100 ml Exam Constitutional: alert, oriented Psych: no complaints, nl mood/affect Head: normocephalic, atraumatic Neck: supple; No jvd Respiratory: clear to auscultation; No crackles/rales Cardiovascular: regular rate and rhythm; No edema, No systolic murmur Gastrointestinal: soft; No non-tender (RUQ), No distended Musculoskeletal: nl extremities to inspection Neurological: nl mental status, nl speech Labs Result Diagram: 09/18/18 0451 09/18/18 0451 Results 24hrs Laboratory Tests Test 09/17/18 15:26 09/17/18 17:07 09/18/18 04:51 White Blood Count 17.0 H 17.4 H Red Blood Count 4.73 4.39 L Hemoglobin 14.7 13.8 L Hematocrit 43.0 41.2 L Mean Corpuscular Volume 90.9 93.8 Mean Corpuscular Hemoglobin 31.1 31.4 Mean Corpuscular Hemoglobin Concent 34.2 33.5 Red Cell Distribution Width 12.8 13.1 Platelet Count 297 268 Mean Platelet Volume 10.8 H 10.7 H Immature Granulocytes % 0.400 0.500 H Neutrophils % 83.8 H 82.1 H Lymphocytes % 6.9 L 7.7 L Monocytes % 8.4 8.8 Eosinophils % 0.2 0.6 Basophils % 0.3 0.3 Nucleated Red Blood Cells % 0.0 0.0 Immature Granulocytes # 0.060 H 0.080 H Neutrophils # 14.2 H 14.3 H Lymphocytes # 1.2 1.4 Monocytes # 1.4 H 1.5 H Eosinophils # 0.0 0.1 Basophils # 0.1 0.1 Nucleated Red Blood Cells # 0.0 0.0 Prothrombin Time 14.4 Prothrombin Time Ratio 1.1 INR International Normalized Ratio 1.11 Activated Partial Thromboplast Time 29.2 Sodium Level 138 140 Potassium Level 3.9 3.9 Chloride Level 104 103 Carbon Dioxide Level 25 29 Anion Gap 9 8 Blood Urea Nitrogen 12 13 Creatinine 0.66 0.89 Est Glomerular Filtrat Rate mL/min > 60 > 60 Glucose Level 104 95 Lactic Acid Level 0.9 Calcium Level 9.0 8.9 Magnesium Level 1.7 1.9 Total Bilirubin 1.4 H 1.6 H Direct Bilirubin 0.00 0.00 Indirect Bilirubin 1.4 H 1.6 H Aspartate Amino Transf (AST/SGOT) 35 29 Alanine Aminotransferase (ALT/SGPT) 27 27 Alkaline Phosphatase 61 59 Troponin I < 0.012 Total Protein 7.1 6.8 Albumin 4.0 3.8 Globulin 3.10 3.00 Albumin/Globulin Ratio 1.29 1.26 Urine Color YELLOW Urine Clarity CLEAR Urine pH 6.0 Urine Specific [employer] 1.011 Urine Ketones NEGATIVE Urine Nitrite NEGATIVE Urine Bilirubin NEGATIVE Urine Urobilinogen NEGATIVE Urine Leukocyte Esterase NEGATIVE Urine Microscopic RBC 1 Urine Microscopic WBC 0 Urine Hemoglobin 1+ H Urine Glucose NEGATIVE Urine Total Protein NEGATIVE Triglycerides Level 45 Cholesterol Level 94 L LDL Cholesterol, Calculated 36 HDL Cholesterol 49 Cholesterol/HDL Ratio 1.9 Thyroid Stimulating Hormone (TSH) 3.460 Medications Medications Current Medications Sodium Chloride 1,000 ml @ 100 mls/hr Q10H IV Last administered on 09/18/18at 03:35; Admin Dose 100 MLS/HR; Start 09/17/18 at 14:31 IV Flush (NS 3 ml) 3 ml PER PROTOCOL IV ; Start 09/17/18 at 15:00 Ondansetron HCl (Zofran Inj) 4 mg Q6H PRN IV NAUSEA/VOMITING; Start 09/17/18 at 15:00 Acetaminophen (Tylenol Tab) 650 mg Q6H PRN PO .PAIN 1-3 OR TEMP; Start 09/17/18 at 15:00 Acetaminophen/ Hydrocodone Bitart ([place] (5/325)) 1 tab Q6H PRN PO .PAIN 4-6; Start 09/17/18 at 15:00 Pantoprazole (Protonix Iv) 40 mg DAILY@06 IV Last administered on 09/18/18at 05:14; Admin Dose 40 MG; Start 09/18/18 at 06:00 Piperacillin Sod/ Tazobactam Sod 100 ml @ 200 mls/hr Q6 IVPB Last administered on 09/18/18at 05:14; Admin Dose 200 MLS/HR; Start 09/17/18 at 15:00 Hydralazine HCl (Apresoline) 10 mg Q4H PRN IV sbp >160; Start 09/17/18 at 15:30 Hydromorphone HCl (Dilaudid) 0.5 mg Q3 PRN IV .PAIN 7-10 Last administered on 09/18/18at 00:08; Admin Dose 0.5 MG; Start 09/17/18 at 18:00 NITHIN HILL Sep 18, 2018 12:00
--- NOTE | 2018-09-18 12:21 | PREAC ---
Date/Time of Note Date/Time of Note DATE: 09/18/18 TIME: 12:20 Anesthesia Eval and Record Evaluation Time Pre-Procedure Interview DATE: 09/18/18 TIME: 12:20 Age 58 Sex male NPO: 8 hrs Preoperative diagnosis acute cholecystitis Planned procedure lap umberto Past Medical History Past Medical History: Includes Neuro: Other (parkinson) Surgery & Anesthesia Issues No known issue Meds Anticoagulation: No Beta Duran within 24 hr: No Reason Beta Duran not given: Pt. not on B-Duran Reported Medications Carbidopa/Levodopa (Carbidopa-Levo 25-100 Tab) 1 Udtab.sa Tablet.sa, 1 TAB PO QID, #120 TAB 12/26/15 Rasagiline Mesylate* (Azilect*) 1 Mg Tablet, 1 MG PO DAILY, TAB 12/26/15 Lisinopril* (Lisinopril*) 10 Mg Tablet, 10 MG PO DAILY, #30 TAB 12/26/15 Ropinirole Hcl* (Ropinirole Hcl*) 2 Mg Tablet, 2 MG PO TID, TAB 12/26/15 Omeprazole* (Omeprazole*) 40 Mg Capsule.dr, 40 MG PO DAILY, #30 CAP 12/26/15 Magnesium Oxide* (Magnesium Oxide*) 400 Mg Tablet, 400 MG PO DAILY, TAB 12/26/15 Current Medications Sodium Chloride 1,000 ml @ 100 mls/hr Q10H IV Last administered on 09/18/18at 03:35; Admin Dose 100 MLS/HR; Start 09/17/18 at 14:31 IV Flush (NS 3 ml) 3 ml PER PROTOCOL IV ; Start 09/17/18 at 15:00 Ondansetron HCl (Zofran Inj) 4 mg Q6H PRN IV NAUSEA/VOMITING; Start 09/17/18 at 15:00 Acetaminophen (Tylenol Tab) 650 mg Q6H PRN PO .PAIN 1-3 OR TEMP; Start 09/17/18 at 15:00 Acetaminophen/ Hydrocodone Bitart ([place] (5/325)) 1 tab Q6H PRN PO .PAIN 4-6; Start 09/17/18 at 15:00 Pantoprazole (Protonix Iv) 40 mg DAILY@06 IV Last administered on 09/18/18at 05:14; Admin Dose 40 MG; Start 09/18/18 at 06:00 Piperacillin Sod/ Tazobactam Sod 100 ml @ 200 mls/hr Q6 IVPB Last administered on 09/18/18at 05:14; Admin Dose 200 MLS/HR; Start 09/17/18 at 15:00 Hydralazine HCl (Apresoline) 10 mg Q4H PRN IV sbp >160; Start 09/17/18 at 15:30 Hydromorphone HCl (Dilaudid) 0.5 mg Q3 PRN IV .PAIN 7-10 Last administered on 09/18/18at 00:08; Admin Dose 0.5 MG; Start 09/17/18 at 18:00 Meds reviewed: Yes Allergies Coded Allergies: No Known Allergies (Verified Allergy, Mild, 04/17/10) Allergies Reviewed: Yes Labs/Studies Labs Reviewed: Reviewed by anesthesiologist Result Diagram: 09/18/18 0451 09/18/18 0451 Laboratory Tests 09/18/18 04:51 test: N/A Studies: ECG (sr), CXR (mild basilar atelectasis) Pre-procedure Exam Last vitals Vital Signs Date Temp Pulse Resp B/P (MAP) Pulse Ox O2 O2 Flow FiO2 Time Delivery Rate 09/18/18 98.7 92 18 140/78 94 08:00 (98) 09/18/18 Room Air 02:36 Airway: Adequate mouth opening Mallampati: Mallampati II Teeth: Normal Lung: Normal Heart: Normal ASA Physical Status ASA physical status: 2 Emergency: None Planned Anesthetic General/MAC: ETT Nerve block: TAP (bilateral) Planned Pain Management Parenteral pain med Pre-operative Attestations Prior to commencing anesthesia and surgery, the patient was re-evaluated, there was verification of: *The patient's identity *The results of appropriate recent lab work and preoperative vital signs *The above evaluation not changing prior to induction *Anesthetic plan, risk benefits, alternative and complications discussed with patient/family; questions answered; patient/family understands, accepts and wishes to proceed. PATRICIO ANGELO MD Sep 18, 2018 12:21
[2018-09-18] MEDS ORDERED: BUPIVACAINE 0.25% (MPF) 30 ML INJ INJ ONE (12:30)
[2018-09-18] MEDS ORDERED: ONDANSETRON 4 MG INJ ONE (12:46)
[2018-09-18] MEDS ORDERED: ROPIVACAINE 0.5 % 30 ML VIAL ONE (12:46)
[2018-09-18] MEDS ORDERED: DEXAMETHASONE 4 MG/ML 5 ML INJ ONE (12:46)
[2018-09-18] MEDS ORDERED: PROPOFOL 20 ML ONE ×2 (12:46→13:37)
[2018-09-18] MEDS ORDERED: ROCURONIUM 50 MG INJ ONE (12:46)
[2018-09-18] MEDS ORDERED: GLYCOPYRROLATE 0.4 MG INJ ONE (12:47)
[2018-09-18] MEDS ORDERED: NEOSTIGMINE 3 MG/3 ML SYRINGE ONE (12:47)
[2018-09-18] MEDS ORDERED: MIDAZOLAM 1 MG/ML 2 ML INJ ONE (12:47)
[2018-09-18] MEDS ORDERED: CEFAZOLIN 1 GM INJ ONE (12:47)
[2018-09-18] MEDS ORDERED: BUPIVACAINE 0.25% (MPF) 30 ML INJ ONE (12:49)
[2018-09-18] MEDS ORDERED: FENTAnyl 50 MCG/ML VIAL ONE (13:32)
[2018-09-18] MEDS ORDERED: ONDANSETRON 4 MG INJ IV PRN ×2 (14:00→14:30)
[2018-09-18] MEDS ORDERED: MEPERIDINE 25 MG INJ IV PRN (14:00)
[2018-09-18] MEDS ORDERED: KETOROLAC 30 MG INJ IV PRN (14:00)
[2018-09-18] MEDS ORDERED: DIPHENHYDRAMINE 50 MG INJ IV PRN (14:00)
[2018-09-18] MEDS ORDERED: HYDROmorphONE 1 MG/5 ML IV SYRINGE IV PRN ×3 (14:00)
[2018-09-18] MEDS ORDERED: FENTAnyl 50 MCG/ML VIAL IV PRN ×3 (14:00)
[2018-09-18] MEDS ORDERED: LABETALOL HCL 20MG INJ IV PRN (14:00)
[2018-09-18] MEDS ORDERED: hydrALAzine 20 MG INJ IV PRN (14:00)
--- NOTE | 2018-09-18 14:15 | OPR ---
Date/Time of Note Date/Time of Note DATE: 09/18/18 TIME: 14:10 Operative Report Procedure Date: Sep 18, 2018 Preoperative Diagnosis Acute cholecystitis Postoperative Diagnosis Acute suppurative cholecystitis Operation/Procedure Performed 1. Laparoscopic cholecystectomy 2. Placement of drain Surgeon Aman Dawn MD Muffler Tender None Anesthesia Type: general Anesthesiologist: PATRICIO ANGELO MD Estimated Blood Loss: other (Approximately 100 cc) Transfusion none Specimen Gallbladder and culture and sensitivity Grafts/Implants none Tubes/Drains #19 Round Yakov Complications none Pt Condition Post Procedure: stable Indications Acute cholecystitis Procedure Description After satisfactory general endotracheal anesthesia was achieved, the abdomen was prepped and draped in the usual fashion. The abdomen was insufflated with carbon dioxide through an umbilical Veress needle to 15 mmHg pressure. The Veress needle was removed and the umbilical incision extended to 5 mm through which a 5 mm trocar was placed. Fibrin and pus was noted in the right upper quadrant. Under direct visualization a 12 mm epigastric trocar was placed as well as 2 more 5 mm right lateral abdominal trochars. The gallbladder was tense thickened inflamed and . The top of the gallbladder was grasped and retracted superiorly. The infundibulum of the gallbladder was grasped and retracted inferolaterally. The hepatoduodenal ligament was carefully dissected between the gallbladder and the well-visualized caleb hepatis. The cystic duct was dissected circumferentially between the gallbladder and the caleb hepatis and then was triply hemoclipped and divided at the junction of the gallbladder and the cystic duct. The cystic arteries identified immediately posteriorly this was triply hemoclipped and divided between clips. The gallbladder was then dissected from below. Grasper perforation of the gallbladder led to spillage of stones which was at the end of the procedure be either retracted manually or suctioned out. The gallbladder was dissected and submitted. Hemostasis was completed with electrocautery. Now every stone identified was either grasped and removed were suctioned out. At the completion of the procedure hemostasis was total and there were no residual stones. Because of the large amount of infection and spillage it was elected to place a drain. A #19 round Yakov drain was placed draining the right subhepatic space and gallbladder fossa and exited through the lateralmost puncture site where it was secured to the skin with a single suture of 2-0 silk. The abdomen was then desufflated and the trochars were removed. The fascia of the epigastrium was closed with 2 sutures of 0 Vicryl. The skin punctures were closed with rogelio. Sponge and needle counts reported as correct x2. AMAN DAWN MD Sep 18, 2018 14:15
[2018-09-18] MEDS ORDERED: morphine 2 MG INJ IV PRN (14:30)
[2018-09-18] MEDS: OXYCODONE/ACETAMINOPHEN (5/325) TAB PO PRN (18:55)
[2018-09-19] VITALS (8 sets, daily range): BP systolic 105–145; BP diastolic 70–98; PULSE 82–96; RESP 14–23
[2018-09-19] MEDS: HYDROmorphONE 0.5 MG/0.5 ML SYG IV PRN ×3 (00:06→17:14)
[2018-09-19] MEDS: OXYCODONE/ACETAMINOPHEN (5/325) TAB PO PRN ×4 (00:40→20:36)
[2018-09-19] MEDS: PANTOPRAZOLE 40 MG INJ IV SCH (05:28)
[2018-09-19] MEDS: PIPER-TAZO 3.375 GM IV (PMX) 100 ML IVPB SCH ×4 (05:29→23:19)
[2018-09-19] MEDS: SOD CHLORIDE 0.9% 1,000 ML IV SCH ×4 (06:38→23:20)
--- NOTE | 2018-09-19 07:21 | PAC ---
Date/Time of Note Date/Time of Note DATE: 09/19/18 TIME: 07:21 Post-Anesthesia Notes Post-Anesthesia Note Last documented vital signs Vital Signs Date Temp Pulse Resp B/P (MAP) Pulse Ox O2 O2 Flow FiO2 Time Delivery Rate 09/18/18 98.9 90 18 119/74 96 Room Air 23:53 (89) 09/18/18 2.0 14:57 Activity: WNL Respiratory function: WNL Cardiovascular function: WNL Mental status: Baseline Pain reasonably controlled: Yes Hydration appropriate: Yes Nausea/Vomiting absent: No PATRICIO ANGELO MD Sep 19, 2018 07:21
--- NOTE | 2018-09-19 12:23 | PN ---
Date/Time of Note Date/Time of Note DATE: 09/19/18 TIME: 12:20 Assessment/Plan VTE Prophylaxis Risk score (from Nsg)>0 risk: 4 SCD applied (from Nsg): Yes Pharmacological prophylaxis: NA/contraindicated Pharm contraindication: low risk/ambulating Lines/Catheters IV Catheter Type (from Rustg): Peripheral IV Urinary Cath still in place: No Assessment/Plan Hospital Course SUBJECTIVE: No acute issues. GILA draining moderate amount of serosanguineous. No abdominal pain, fevers, chills. Scheduled for EGD today. OBJECTIVE: Vital signs-see below PHYSICAL EXAM: Constitutional: Adequately built,not in acute distress. HEENT: Head atraumatic and normocephalic. Eyes: Extraocular muscles intact. Anicteric sclerae. Pupils equal bilaterally, reactive to light. NECK: Supple without lymph node. CHEST: Clear and good breath sounds equally. No wheezing. No rhonchi. HEART: S1, S2. Regular rate and rhythm. ABDOMEN: Lap incision site w/c/d/i dressing.GILA draining sero-sanguinous., no rebound tenderness Bowel sounds were present. EXTREMITIES: No cyanosis, clubbing or edema. NEUROLOGIC: Alert and oriented x3. No focal deficit. No sensory deficit. PSYCHOSOCIAL: No signs of depression. INTEGUMENTARY: No open wounds. ASSESSMENT AND PLAN: 58-year-old male with a history of parkinsonism, hypertension, GERD, admitted with acute cholecystitis. Acute suppurative cholecystitis. -Status post lap umberto with placement of drain. -Follow-up pathology/cultures -Encourage ambulation/incentive spirometry Sepsis secondary to above -Improving -Continue IV antimicrobials and follow-up surgery pathology Abnormal antral wall thickening, rule out peptic ulcer disease versus other -Plan is EGD evaluation with GI team today. -Empiric PPI Abnormal EKG -This was artifact and appreciate cardiology review. Parkinsonism -Continue home medications Essential hypertension -Continue antihypertensives DVT prophylaxis: SCDs PUD prophylaxis: Protonix Disposition: Continue current management. Follow-up surgery/GI recommendations. Patient is seen in collaboration with Dr. Livingston. Result Diagram: 09/19/18 0443 09/19/18 0442 Results 24hrs Laboratory Tests Test 09/19/18 04:42 09/19/18 04:43 Sodium Level 142 Potassium Level 4.2 Chloride Level 107 Carbon Dioxide Level 28 Anion Gap 7 Blood Urea Nitrogen 15 Creatinine 0.90 Est Glomerular Filtrat Rate mL/min > 60 Glucose Level 118 Calcium Level 9.3 Magnesium Level 2.1 Total Bilirubin 0.8 Direct Bilirubin 0.00 Indirect Bilirubin 0.8 Aspartate Amino Transf (AST/SGOT) 92 #H Alanine Aminotransferase (ALT/SGPT) 54 Alkaline Phosphatase 63 Total Protein 6.9 Albumin 3.5 Globulin 3.40 H Albumin/Globulin Ratio 1.02 White Blood Count 15.6 H Red Blood Count 4.05 L Hemoglobin 12.7 L Hematocrit 37.6 L Mean Corpuscular Volume 92.8 Mean Corpuscular Hemoglobin 31.4 Mean Corpuscular Hemoglobin Concent 33.8 Red Cell Distribution Width 13.2 Platelet Count 274 Mean Platelet Volume 10.7 H Immature Granulocytes % 0.600 H Neutrophils % 88.5 H Lymphocytes % 4.8 L Monocytes % 6.0 Eosinophils % 0.0 Basophils % 0.1 Nucleated Red Blood Cells % 0.0 Immature Granulocytes # 0.100 H Neutrophils # 13.8 H Lymphocytes # 0.8 Monocytes # 0.9 Eosinophils # 0.0 Basophils # 0.0 Nucleated Red Blood Cells # 0.0 Exam/Review of Systems Exam Vitals Vital Signs Date Temp Pulse Resp B/P (MAP) Pulse Ox O2 O2 Flow FiO2 Time Delivery Rate 09/19/18 97.4 87 18 137/98 94 Room Air 08:29 (111) 09/18/18 2.0 14:57 Intake and Output 09/18/18 09/18/18 09/19/18 1515:00 23:00 07:00 IntakeIntake Total 1250 ml 825 ml 1580 ml OutputOutput Total 20 ml 160 ml 20 ml BalanceBalance 1230 ml 665 ml 1560 ml Results Results 24hrs Laboratory Tests Test 09/19/18 04:42 09/19/18 04:43 Sodium Level 142 Potassium Level 4.2 Chloride Level 107 Carbon Dioxide Level 28 Anion Gap 7 Blood Urea Nitrogen 15 Creatinine 0.90 Est Glomerular Filtrat Rate mL/min > 60 Glucose Level 118 Calcium Level 9.3 Magnesium Level 2.1 Total Bilirubin 0.8 Direct Bilirubin 0.00 Indirect Bilirubin 0.8 Aspartate Amino Transf (AST/SGOT) 92 #H Alanine Aminotransferase (ALT/SGPT) 54 Alkaline Phosphatase 63 Total Protein 6.9 Albumin 3.5 Globulin 3.40 H Albumin/Globulin Ratio 1.02 White Blood Count 15.6 H Red Blood Count 4.05 L Hemoglobin 12.7 L Hematocrit 37.6 L Mean Corpuscular Volume 92.8 Mean Corpuscular Hemoglobin 31.4 Mean Corpuscular Hemoglobin Concent 33.8 Red Cell Distribution Width 13.2 Platelet Count 274 Mean Platelet Volume 10.7 H Immature Granulocytes % 0.600 H Neutrophils % 88.5 H Lymphocytes % 4.8 L Monocytes % 6.0 Eosinophils % 0.0 Basophils % 0.1 Nucleated Red Blood Cells % 0.0 Immature Granulocytes # 0.100 H Neutrophils # 13.8 H Lymphocytes # 0.8 Monocytes # 0.9 Eosinophils # 0.0 Basophils # 0.0 Nucleated Red Blood Cells # 0.0 Medications Medication Current Medications Sodium Chloride 1,000 ml @ 100 mls/hr Q10H IV Last administered on 09/19/18at 10:55; Admin Dose 100 MLS/HR; Start 09/17/18 at 14:31 IV Flush (NS 3 ml) 3 ml PER PROTOCOL IV ; Start 09/17/18 at 15:00 Ondansetron HCl (Zofran Inj) 4 mg Q6H PRN IV NAUSEA/VOMITING; Start 09/17/18 at 15:00 Acetaminophen (Tylenol Tab) 650 mg Q6H PRN PO .PAIN 1-3 OR TEMP; Start 09/17/18 at 15:00 Acetaminophen/ Hydrocodone Bitart ([place] (5/325)) 1 tab Q6H PRN PO .PAIN 4-6; Start 09/17/18 at 15:00 Pantoprazole (Protonix Iv) 40 mg DAILY@06 IV Last administered on 09/19/18at 05:28; Admin Dose 40 MG; Start 09/18/18 at 06:00 Piperacillin Sod/ Tazobactam Sod 100 ml @ 200 mls/hr Q6 IVPB Last administered on 09/19/18at 10:55; Admin Dose 200 MLS/HR; Start 09/17/18 at 15:00 Hydralazine HCl (Apresoline) 10 mg Q4H PRN IV sbp >160; Start 09/17/18 at 15:30 Hydromorphone HCl (Dilaudid) 0.5 mg Q3 PRN IV .PAIN 7-10 Last administered on 09/19/18at 07:39; Admin Dose 0.5 MG; Start 09/17/18 at 18:00 Oxycodone/ Acetaminophen (Percocet (5/ 325)) 1 tab Q4H PRN PO .MILD PAIN (1-3) Last administered on 09/19/18at 09:01; Admin Dose 1 TAB; Start 09/18/18 at 14:30 Oxycodone/ Acetaminophen (Percocet (5/ 325)) 2 tab Q4H PRN PO .MODERATE PAIN (4-6) Last administered on 09/19/18at 12:03; Admin Dose 2 TAB; Start 09/18/18 at 14:30 Ondansetron HCl (Zofran Inj) 4 mg Q6H PRN IV NAUSEA/VOMITING; Start 09/18/18 at 14:30 ELANA JEFFERY NP Sep 19, 2018 12:23
--- NOTE | 2018-09-19 12:55 | QN ---
Documentation Comment Postoperative day #1 Excellent postoperative recovery. Patient is markedly symptomatically improved Leukocytosis improved. LFTs are normal GILA drainage moderate serous Plan: Continue medical management. Should be able to discharge tomorrow AMAN DAWN MD Sep 19, 2018 12:55
--- NOTE | 2018-09-19 15:52 | PREAC ---
Date/Time of Note Date/Time of Note DATE: 09/19/18 TIME: 15:50 Anesthesia Eval and Record Evaluation Time Pre-Procedure Interview DATE: 09/19/18 TIME: 15:50 Age 58 Sex male NPO: 8 hrs Preoperative diagnosis Abnormal CT of Stomach Planned procedure EGD Past Medical History Past Medical History: Includes Cardio: HTN, Arrythmia (Tachycardia) Neuro: Other (Pakinson's X 8 yrs) Heme: Anemia Surgery & Anesthesia Issues No known issue Meds Anticoagulation: No Beta Duran within 24 hr: No Reason Beta Duran not given: Pt. not on B-Duran Reported Medications Carbidopa/Levodopa (Carbidopa-Levo 25-100 Tab) 1 Udtab.sa Tablet.sa, 1 TAB PO QID, #120 TAB 12/26/15 Rasagiline Mesylate* (Azilect*) 1 Mg Tablet, 1 MG PO DAILY, TAB 12/26/15 Lisinopril* (Lisinopril*) 10 Mg Tablet, 10 MG PO DAILY, #30 TAB 12/26/15 Ropinirole Hcl* (Ropinirole Hcl*) 2 Mg Tablet, 2 MG PO TID, TAB 12/26/15 Omeprazole* (Omeprazole*) 40 Mg Capsule.dr, 40 MG PO DAILY, #30 CAP 12/26/15 Magnesium Oxide* (Magnesium Oxide*) 400 Mg Tablet, 400 MG PO DAILY, TAB 12/26/15 Current Medications Sodium Chloride 1,000 ml @ 100 mls/hr Q10H IV Last administered on 09/19/18at 10:55; Admin Dose 100 MLS/HR; Start 09/17/18 at 14:31 IV Flush (NS 3 ml) 3 ml PER PROTOCOL IV ; Start 09/17/18 at 15:00 Ondansetron HCl (Zofran Inj) 4 mg Q6H PRN IV NAUSEA/VOMITING; Start 09/17/18 at 15:00 Acetaminophen (Tylenol Tab) 650 mg Q6H PRN PO .PAIN 1-3 OR TEMP; Start 09/17/18 at 15:00 Acetaminophen/ Hydrocodone Bitart ([place] (5/325)) 1 tab Q6H PRN PO .PAIN 4-6; Start 09/17/18 at 15:00 Pantoprazole (Protonix Iv) 40 mg DAILY@06 IV Last administered on 09/19/18at 05:28; Admin Dose 40 MG; Start 09/18/18 at 06:00 Piperacillin Sod/ Tazobactam Sod 100 ml @ 200 mls/hr Q6 IVPB Last administered on 09/19/18at 10:55; Admin Dose 200 MLS/HR; Start 09/17/18 at 15:00 Hydralazine HCl (Apresoline) 10 mg Q4H PRN IV sbp >160; Start 09/17/18 at 15:30 Hydromorphone HCl (Dilaudid) 0.5 mg Q3 PRN IV .PAIN 7-10 Last administered on 09/19/18at 07:39; Admin Dose 0.5 MG; Start 09/17/18 at 18:00 Oxycodone/ Acetaminophen (Percocet (5/ 325)) 1 tab Q4H PRN PO .MILD PAIN (1-3) Last administered on 09/19/18at 09:01; Admin Dose 1 TAB; Start 09/18/18 at 14:30 Oxycodone/ Acetaminophen (Percocet (5/ 325)) 2 tab Q4H PRN PO .MODERATE PAIN (4-6) Last administered on 09/19/18at 12:03; Admin Dose 2 TAB; Start 09/18/18 at 14:30 Ondansetron HCl (Zofran Inj) 4 mg Q6H PRN IV NAUSEA/VOMITING; Start 09/18/18 at 14:30 Meds reviewed: Yes Allergies Coded Allergies: No Known Allergies (Verified Allergy, Mild, 04/17/10) Allergies Reviewed: Yes Labs/Studies Labs Reviewed: Reviewed by anesthesiologist Result Diagram: 09/19/18 0443 09/19/18 0442 Laboratory Tests 09/19/18 04:42 09/19/18 04:43 test: N/A Studies: ECG (n/a), CXR (n/a) Pre-procedure Exam Last vitals Vital Signs Date Temp Pulse Resp B/P (MAP) Pulse Ox O2 O2 Flow FiO2 Time Delivery Rate 09/19/18 98.2 88 18 139/75 98 Room Air 15:20 (96) 09/18/18 2.0 14:57 Airway: Adequate mouth opening, Adequate thyromental dist Mallampati: Mallampati II Teeth: Normal Lung: Normal Heart: Normal ASA Physical Status ASA physical status: 3 Emergency: None Planned Anesthetic General/MAC: MAC Planned Pain Management Parenteral pain med Pre-operative Attestations Prior to commencing anesthesia and surgery, the patient was re-evaluated, there was verification of: *The patient's identity *The results of appropriate recent lab work and preoperative vital signs *The above evaluation not changing prior to induction *Anesthetic plan, risk benefits, alternative and complications discussed with patient/family; questions answered; patient/family understands, accepts and wishes to proceed. EPI TURCIOS MD Sep 19, 2018 15:52
[2018-09-19] MEDS ORDERED: PROPOFOL 40 ML ONE (16:21)
--- NOTE | 2018-09-19 16:23 | PAC ---
Date/Time of Note Date/Time of Note DATE: 09/19/18 TIME: 16:22 Post-Anesthesia Notes Post-Anesthesia Note Last documented vital signs Vital Signs Date Temp Pulse Resp B/P (MAP) Pulse Ox O2 O2 Flow FiO2 Time Delivery Rate 09/19/18 99.2 96 14 145/80 100 face mask 8 L 16:31 (101) 09/18/18 2.0 14:57 Activity: WNL Respiratory function: WNL Cardiovascular function: WNL Mental status: Baseline Pain reasonably controlled: Yes Hydration appropriate: Yes Nausea/Vomiting absent: Yes EPI TURCIOS MD Sep 19, 2018 16:23
[2018-09-20 01:05] VITALS: BP 137/86; PULSE 83; RESP 18
[2018-09-20] MEDS: PANTOPRAZOLE 40 MG INJ IV SCH (05:50)
[2018-09-20] MEDS: PIPER-TAZO 3.375 GM IV (PMX) 100 ML IVPB SCH ×2 (05:51→11:21)
[2018-09-20 08:01] VITALS: BP 146/79; PULSE 83; RESP 18
--- NOTE | 2018-09-20 09:15 | QN ---
Documentation Comment Postoperative day #2 Leukocytosis resolved Patient feels quite well Abdominal examination is benign LFTs are normal Moderate serous GILA drainage Plan: Cleared for discharge home today with GILA drain. Will see in office in 1 week for staple and drain removal AMAN DAWN MD September 20, 2018 09:15
--- NOTE | 2018-09-20 09:35 | PDOCDIS ---
Discharge Instructions CONDITION [id number] Patient Condition: [id number] Stable HOME CARE INSTRUCTIONS: [id number] Diet Instructions: [id number] Regular FOLLOW UP/APPOINTMENTS Follow-up Plan Follow-up with Dr. Guerrier in 1 week. You are sent home with a drain in your abdomen. Do not try to pull it out. Please follow nursing instructions how to take care of the drain. You will need to see Dr. Guerrier in his clinic in 1 week for removal of drain. You underwent endoscopy and your pathology report is currently pending. You request discharge prior pathology/biopsy result. I recommend you see Dr. Barnes in his clinic in the next 3 days to find out biopsy result and referral if need ed. Post operative Instructions *Do not lift anything more than 25 pounds for 6 to 8 weeks *Do not swim or take hot tub bath for 2weeks *Remove dressing and May shower-Use mild soap around site and pat dry *If you notice any oozing, bleeding or other drainage or having fever or chills from site please contact Surgeon's office-If unable to get office, you may go to nearest emergency room Take over the counter colace 100mg twice a day ELANA JEFFERY NP September 20, 2018 09:35
[2018-09-20] MEDS ORDERED: METR-122 PO (09:37)
[2018-09-20] MEDS ORDERED: CIPR500T4 PO (09:37)
[2018-09-20] MEDS ORDERED: HYDR-4011 PO (09:38)
--- NOTE | 2018-09-20 10:01 | DS ---
Date/Time of Note Date/Time of Note DATE: 09/20/18 TIME: 09:43 Discharge Summary Admission/Discharge Info Admit Date/Time Sep 17, 2018 at 14:05 Discharge Date/Time Discharge Diagnosis Acute suppurative cholecystitis.Status post lap umberto with placement of drain, status post Sepsis secondary to above Abnormal antral wall thickening/cobble stoning.R/O Lymphoma. Biopsy pending-pt will f/u w/ Parkinsonism Essential hypertension Patient Condition: Stable Consults ,surgery ,GI Procedures 09/18/2018. Operation/Procedure Performed 1. Laparoscopic cholecystectomy 2. Placement of drain Postoperative Diagnosis Acute suppurative cholecystitis 09/19/2018. EGD. Impression: Hypertrophic folds and cobblestoning of gastric body fundus rule out lymphoma. Hospital Course 58-year-old male with a history of parkinsonism, hypertension, GERD, admitted with acute cholecystitis, also found to have abnormal antral wall thickening. Patient underwent laparoscopic cholecystectomy with GILA drain placement on 09/18/2018. Patient was found to have suppurative cholecystitis. He was continued on appropriate antimicrobials with anaerobic coverage is. Sepsis resolved. GILA drainage amount minimized. Patient then underwent EGD on 09/19/2018, which showed cobblestone appearance of gastric body, for which biopsy was sent. Patient tolerates diet and activities. No fevers. Leukocytosis resolved. Patient was cleared from surgical standpoint for discharge with the drain in place and to have him follow-up with office in 1 week. Patient does not want to stay in the hospital any further and wait for EGD biopsy result and he is adamant on leaving. Patient also reports that he will follow-up with retirement plan counselor and will follow up on his biopsy findings. At this time, since patient is hemodynamically stable it is reasonable to discharge home and he can follow-up biopsy findings and further referral as appropriate as outpatient. Approximately 60 m spent on coordinating the discharge on this patient. [facility] Metronidazole* (Metronidazole*) 500 Mg Tablet, 500 MG PO Q8 for 7 Days, #21 TAB Prov:JEFFERY,ELANA V. WASH WORKER 09/20/18 Ciprofloxacin Hcl* (Ciprofloxacin Hcl*) 500 Mg Tablet, 500 MG PO BID, #14 TAB Prov:JEFFERYSUSANAA V. WASH WORKER 09/20/18 Reported Medications Carbidopa/Levodopa (Carbidopa-Levo 25-100 Tab) 1 Udtab.sa Tablet.sa, 1 TAB PO QID, #120 TAB 12/26/15 Rasagiline Mesylate* (Azilect*) 1 Mg Tablet, 1 MG PO DAILY, TAB 12/26/15 Lisinopril* (Lisinopril*) 10 Mg Tablet, 10 MG PO DAILY, #30 TAB 12/26/15 Ropinirole Hcl* (Ropinirole Hcl*) 2 Mg Tablet, 2 MG PO TID, TAB 12/26/15 Omeprazole* (Omeprazole*) 40 Mg Capsule., 40 MG PO DAILY, #30 CAP 12/26/15 Magnesium Oxide* (Magnesium Oxide*) 400 Mg Tablet, 400 MG PO DAILY, TAB 12/26/15 Follow-up Plan Follow-up with Dr. Guerrier in 1 week. You are sent home with a drain in your abdomen. Do not try to pull it out. Please follow nursing instructions how to take care of the drain. You will need to see Dr. Guerrier in his clinic in 1 week for removal of drain. You underwent endoscopy and your pathology report is currently pending. You request discharge prior pathology/biopsy result. I recommend you see Dr. Barnes in his clinic in the next 3 days to find out biopsy result and referral if needed. Post operative Instructions *Do not lift anything more than 25 pounds for 6 to 8 weeks *Do not swim or take hot tub bath for 2weeks *Remove dressing and May shower-Use mild soap around site and pat dry *If you notice any oozing, bleeding or other drainage or having fever or chills from site please contact Surgeon's office-If unable to get office, you ma y go to nearest emergency room Primary Care Provider Not On Staff Doctor Pending Labs Laboratory Tests Test 09/20/18 04:46 White Blood Count 9.4 10^3/ul (4.8-10.8) Red Blood Count 3.92 10^6/ul (4.70-6.10) Hemoglobin 12.3 g/dl (14.0-18.0) Hematocrit 36.6 % (42.0-52.0) Mean Corpuscular Volume 93.4 fl (82.0-101.0) Mean Corpuscular Hemoglobin 31.4 pg (29.0-33.0) Mean Corpuscular Hemoglobin Concent 33.6 g/dl (32.0-37.0) Red Cell Distribution Width 13.2 % (11.5-14.5) Platelet Count 297 10^3/UL (140-415) Mean Platelet Volume 10.8 fl (7.4-10.4) Immature Granulocytes % 0.400 % (0.001-0.429) Neutrophils % 71.2 % (39.0-77.0) Lymphocytes % 17.6 % (15.0-51.0) Monocytes % 9.0 % (0.0-11.0) Eosinophils % 1.5 % (0.0-7.0) Basophils % 0.3 % (0.0-2.0) Nucleated Red Blood Cells % 0.0 /100WBC (0.0-0.0) Immature Granulocytes # 0.040 10^3/ul (0.0-0.031) Neutrophils # 6.7 10^3/ul (1.6-7.5) Lymphocytes # 1.7 10^3/ul (0.8-2.9) Monocytes # 0.8 10^3/ul (0.3-0.9) Eosinophils # 0.1 10^3/ul (0.0-0.5) Basophils # 0.0 10^3/ul (0.0-0.1) Nucleated Red Blood Cells # 0.0 10^3/ul (0.0-0.0) Sodium Level 142 mmol/L (135-144) Potassium Level 3.9 mmol/L (3.5-5.1) Chloride Level 109 mmol/L (97-110) Carbon Dioxide Level 25 mmol/L (21-31) Anion Gap 8 (5-13) Blood Urea Nitrogen 19 mg/dl (7-20) Creatinine 0.79 mg/dl (0.61-1.24) Est Glomerular Filtrat Rate mL/min > 60 mL/min (>60) Glucose Level 88 mg/dl (70-220) Calcium Level 9.0 mg/dl (8.4-10.2) Magnesium Level 2.0 mg/dl (1.7-2.5) Total Bilirubin 0.8 mg/dl (0.2-1.3) Direct Bilirubin 0.00 mg/dl (0.00-0.20) Indirect Bilirubin 0.8 mg/dl (0-1.1) Aspartate Amino Transf (AST/SGOT) 49 IU/L (15-46) Alanine Aminotransferase (ALT/SGPT) 51 IU/L (13-69) Alkaline Phosphatase 53 IU/L (42-121) Total Protein 6.1 g/dl (6.1-8.1) Albumin 3.1 g/dl (3.3-4.9) Globulin 3.00 g/dl (1.3-3.2) Albumin/Globulin Ratio 1.03 ELANA JEFFERY NP September 20, 2018 09:54
[2018-09-20] MEDS ORDERED: DOCUSATE SODIUM 100 MG CAP PO PRN (11:30)
[2018-09-20] MEDS ORDERED: MAGNESIUM HYDROXIDE 30ML CUP PO ONE (11:30)
== END 2018-09-20 12:40 | disposition home health service (06) | DRG 854 ==
LOC: MS1 14:05
PROVIDERS: ADMIT Internal Medicine; ATTEND Internal Medicine
PROC: 0FT44ZZ Resection of Gallbladder, Percutaneous Endoscopic Approach (ICD-10-PCS; principal; 2018-09-18 13:30)
PROC: 0DB68ZX Excision of Stomach, Via Natural or Artificial Opening Endoscopic, Diagnostic (ICD-10-PCS; 2018-09-19)
DX: A41.9 Sepsis, unspecified organism (principal); K81.0 Acute cholecystitis; G20 Parkinson's disease; I10 Essential (primary) hypertension; F17.200 Nicotine dependence, unspecified, uncomplicated
CPT/HCPCS: 71045; 80048; 80053; 80061; 81001; 83036; 83605; 83735; 84443; 84484; 85025; 85610; 85730; 87070; 87075; 87081; 88304; 88305; 88312; 93005; 93306; C9113; J0690; J1100; J1170; J2250; J2405; J2543; J2710; J2795; J3010; J7030